=== PATIENT | female | born 1965 | race African-American/Black ===

== ENCOUNTER 2019-02-05 15:03 | Emergency (ER) | payer OTHER ==
[~2019-02-05] VITALS: Ht 172.7 cm; Wt 117.9 kg
[2019-02-05 15:07] VITALS: BP 142/87
[2019-02-05] MEDS ORDERED: HYDROcodone-ACET 10/325MG TAB PO ONE (16:00)
== END 2019-02-05 17:44 | disposition home or self-care (01) ==
LOC: ER 15:03 → EDBD 15:03 → ER 17:44
DX: S93.401A Sprain of unspecified ligament of right ankle, initial encounter (principal); M84.372A Stress fracture, left ankle, initial encounter for fracture; F17.210 Nicotine dependence, cigarettes, uncomplicated; W22.8XXA Striking against or struck by other objects, initial encounter; Y93.89 Activity, other specified; Y99.8 Other external cause status; Y92.89 Other specified places as the place of occurrence of the external cause
CPT/HCPCS: 29125; 29515; 73610